=== PATIENT | male | born 1955 | race Caucasian/White ===

== ENCOUNTER 2018-05-25 12:59 | Emergency (ER) | payer MEDICARE, OTHER ==
[~2018-05-25] VITALS: Ht 177.8 cm; Wt 74.5 kg
[2018-05-25 13:14] VITALS: Ht 177.8 cm; Wt 74.5 kg
[2018-05-25] MEDS ORDERED: DIFLUCAN150 MG PO (13:16)
[2018-05-25] MEDS ORDERED: NEXIUM20 MG PO (13:17)
[2018-05-25] MEDS ORDERED: PEPTO-BISMOL262 M1 PO (13:18)
[2018-05-25 15:13] LABS: APPEARANCE CLEAR (CLEAR); BILIRUBIN NEGATIVE (NEGATIVE); COLOR STRAW (YELLOW); GLUCOSE NEGATIVE (NEGATIVE); KETONE SMALL mg/dL (NEGATIVE); NITRITE NEGATIVE (NEGATIVE); PROTEIN NEGATIVE (NEGATIVE); SPECIFIC GRAVITY 1.005 (1.005-1.020); UROBILINOGEN NORMAL (NORMAL)
[2018-05-25 15:14] LABS: BACTERIA FEW /hpf (NONE SEEN); RED CELLS - URINE 0-5 /hpf (0-5); WHITE CELLS - URINE 0-5 /hpf (0-5)
[2018-05-25 15:14] LABS: BASOPHILS 0.1 % (0-2); EOSINOPHILS 0.3 % (0-7); HEMATOCRIT 40.3 % (42.0-54.0); HEMOGLOBIN 13.6 g/dL (13.5-17.5); IMMATURE GRANULOCYTES 0.5 % (0-5); LYMPHOCYTES 10.3 % (15-50); MCH 28.6 pg (26.0-34.0); MCHC 33.7 g/dL (31.0-37.0); MCV 84.8 fL (80.0-100.0); MEAN PLATELET VOLUME 9.1 fL (7.4-10.4); MONOCYTES 9.7 % (2-11); NEUTROPHILS 79.1 % (40-80); PLATELET COUNT 313 10x3/uL (130-400); RBC 4.75 10x6/uL (4.20-6.10)
[2018-05-25 15:38] LABS: ALBUMIN 2.4 g/dL (3.4-5.0); ALKALINE PHOSPHATASE 179 U/L (46-116); ALT (SGPT) 45 U/L (10-68); BILIRUBIN - TOTAL 0.46 mg/dL (0.2-1.3); CALC OSMOLALITY 266 mosm/kg (275-300); CALCIUM 9.2 mg/dL (8.5-10.1); CHLORIDE - SERUM 94 mmol/L (98-107); CREATININE - SERUM 0.9 mg/dL (0.6-1.3); GLUCOSE 111 mg/dL (74-106); POTASSIUM - SERUM 4.1 mmol/L (3.5-5.1); PROTEIN - SERUM 8.2 g/dL (6.4-8.2); SODIUM 131 mmol/L (136-145); UREA NITROGEN 21 mg/dL (7-18); eGFR NON AFRICAN AMERICAN 90 mL/min (90-120)
[2018-05-25 15:55] LABS: CREATINE KINASE 136 UL (21-232); TROPONIN-I < 0.017 ng/mL (0.000-0.060)
[2018-05-25] MEDS ORDERED: DIFLUCAN100 MG PO (19:44)
[2018-05-25 20:10] VITALS: BP 148/84
== END 2018-05-25 20:11 | disposition home or self-care (01) ==
LOC: D.ER 12:59
PROVIDERS: Emergency Medicine
DX: R53.1 Weakness (principal); E87.1 Hypo-osmolality and hyponatremia; Z87.19 Personal history of other diseases of the digestive system; R61 Generalized hyperhidrosis; R50.9 Fever, unspecified

== ENCOUNTER → 2018-07-01 12:08 | Outpatient (CLI) | payer MEDICARE, OTHER ==
[2018-05-25 13:14] VITALS: BMI 23.5
[~2018-07-01 12:08] MED LIST: ACETAMINOPHEN500 M1 PO; DIFLUCAN100 MG PO; DIFLUCAN150 MG PO; FISH OIL 1,0001 CA1 PO; MEDROL4 MG; NEXIUM20 MG PO; PEPTO-BISMOL262 M1 PO
[2018-07-14 10:18] VITALS: BMI 22.7
== END | disposition home or self-care (01) ==
LOC: D.CT 12:08
DX: R59.1 Generalized enlarged lymph nodes (principal)

== ENCOUNTER 2018-07-14 08:40 | Outpatient (CLI) | payer MEDICARE, OTHER ==
[~2018-07-14] VITALS: Ht 177.8 cm; Wt 71.8 kg
[~2018-07-14 08:40] MED LIST changes: -ACETAMINOPHEN500 M1 PO; -FISH OIL 1,0001 CA1 PO; -MEDROL4 MG
[2018-07-14 08:59] LABS: BASOPHILS 0.2 % (0-2); EOSINOPHILS 0.4 % (0-7); HEMATOCRIT 42.7 % (42.0-54.0); HEMOGLOBIN 13.8 g/dL (13.5-17.5); IMMATURE GRANULOCYTES 1.1 % (0-5); LYMPHOCYTES 12.8 % (15-50); MCH 27.8 pg (26.0-34.0); MCHC 32.3 g/dL (31.0-37.0); MCV 85.9 fL (80.0-100.0); MEAN PLATELET VOLUME 8.6 fL (7.4-10.4); MONOCYTES 7.9 % (2-11); NEUTROPHILS 77.6 % (40-80); PLATELET COUNT 282 10x3/uL (130-400); RBC 4.97 10x6/uL (4.20-6.10); WBC 13.1 10x3/uL (4.8-10.8)
[2018-07-14 09:08] LABS: CALC OSMOLALITY 277 mosm/kg (275-300); CALCIUM 9.9 mg/dL (8.5-10.1); CARBON DIOXIDE 30.3 mmol/L (21.0-32.0); CHLORIDE - SERUM 99 mmol/L (98-107); CREATININE - SERUM 0.9 mg/dL (0.6-1.3); GLUCOSE 121 mg/dL (74-106); POTASSIUM - SERUM 4.1 mmol/L (3.5-5.1); SODIUM 138 mmol/L (136-145); UREA NITROGEN 16 mg/dL (7-18); eGFR NON AFRICAN AMERICAN 90 mL/min (90-120)
[2018-07-14 09:09] LABS: APTT 31.3 SECONDS (22.8-39.4); INR 1.24 (0.85-1.17)
[2018-07-14] MEDS ORDERED: MEDROL4 MG (09:58)
[2018-07-14] MEDS ORDERED: ACETAMINOPHEN500 M1 PO (09:59)
[2018-07-14] MEDS ORDERED: FISH OIL 1,0001 CA1 PO (10:01)
[2018-07-14 10:18] VITALS: BP 124/83; Ht 177.8 cm; Wt 71.8 kg
--- NOTE | 2018-07-14 12:02 | NUR ---
1140 SEE POST PROCEDURE CHECKLIST FOR VITAL SIGN TRENDS.
--- NOTE | 2018-07-14 12:04 | NUR ---
1155 DRESSING CDI, REG FINGER FOOD DIET SERVED, TIME FRAME FOR TODAYS' STAY GIVEN.
--- NOTE | 2018-07-14 13:09 | NUR ---
PT ABLE TO TOLERATE ICE WATER. DENIES PAIN/NEEDS AT THIS TIME. VS STABLE. WILL CONTINUE TO MONITOR.
--- NOTE | 2018-07-14 14:17 | NUR ---
PT IS STABLE AT THIS TIME. DENIES PAIN/NEEDS AT THIS TIME. VS STABLE. WILL CONTINUE TO MONITOR.
--- NOTE | 2018-07-14 14:59 | NUR ---
DC INSTRUCTIONS GIVEN TO PT/FAMILY. STATE UNDERSTANDING. PT VOIDED. DC'D IV CATH FULLY INTACT.
--- NOTE | 2018-07-14 15:04 | NUR ---
PT WAS INSTRUCTED TO WAIT FOR WC TO LEAVE THE UNIT. HOWEVER, ONCE OUR VOLUNTEER CAME TO THE PT'S ROOM TO BRING HIM TO THE CAR VIA WC, THE PT WAS GONE.
== END 2018-07-14 15:00 | disposition home or self-care (01) ==
LOC: D.SP 08:40 → D.CT 11:00 → D.SP 15:00 → D.CT 07-17 10:00
PROVIDERS: Radiology Vascular & Interventional Radiology
DX: R16.0 Hepatomegaly, not elsewhere classified (principal)

== ENCOUNTER → 2019-02-17 09:48 | Outpatient (CLI) | payer MEDICARE, OTHER ==
[2018-07-14 10:18] VITALS: BMI 22.7
[~2019-02-17 09:48] MED LIST changes: +ACETAMINOPHEN500 M1 PO; +FISH OIL 1,0001 CA1 PO; +MEDROL4 MG
--- NOTE | 2019-02-18 14:31 | EC ---
PATIENT:SANDI OLGUIN DATE OF SERVICE: 02/17/19 SEX: M MEDICAL RECORD: [id number] DATE OF : 53 [facility] AGE [facility] PATIENT: 63 ADMISSION DATE: 02/17/19 REFERRING PHYSICIAN: INTERPRETING PHYSICIAN: HUGO MORAN MD ECHOCARDIOGRAM REPORT ECHO CHARGES 4 ECHO COMPLETE Date: 02/17/19 CLINICAL DIAGNOSIS: CANCER/CHEMOTHERAPY ECHOCARDIOGRAPHIC MEASUREMENTS (adult normal given) AC root (d.<3.7cm) 3.0 cm LV Septum d (<1.2 cm> 1.1 cm Valve Excursion 2.3 cm LV Septum (systole) 1.6 cm Left Atria (s.<4.0cm> 3.9 cm LVPW d(<1.2cm) 1.2 cm RV (d.<2.3cm) 2.3 cm LVPW (sytole) 1.9 cm LV diastole(<5.6CM) 5.3 cm MV E-F(>70mm/sec) cm LV systole 3.2 cm LVOT Diameter 2.0 cm MV exc.(>10mm) cm Est.ejection fraction (50-75%) % DOPPLER: LVIT cm/sec A 36.0 cm/sec E 55.0 cm/sec LA cm/sec RVSP 29.2 mmHg LVOT 117 cm/sec AOP1/2T m/s Asc. Ao 109 cm/sec RVOT 57.0 cm/sec RA cm/sec PA 83.0 cm/sec AV Gradient Peak 4.8 mmHg AV Mean 2.7 mmHg AV Area 3.0 cm MV Gradient Peak 1.8 mmHg MV Mean 0.71 mmHg MV Area cm COMMENTS: Etymology Professor: José Manuel LAKEOE Lab Nurse: 1 Dr. Moran TAPE# PACS Pericardial Effusion N DATE OF SERVICE: 02/17/2019 FINDINGS: 1. Left ventricular chamber size is within normal limits. Left ventricular systolic function is normal at 50%. 2. Left atrium, right atrium, and right ventricular chamber sizes are within normal limits. 3. Valvular structures have normal structure and motion. 4. Doppler interrogation reveals mild mitral regurgitation, mild tricuspid regurgitation, no other valvular insufficiency or stenosis. Pulmonary systolic ECHOCARDIOGRAM REPORT [id number] SANDI OLGUIN pressure is normal estimated at 29 mmHg. 5. No evidence of pericardial effusion or left ventricular thrombus. TRANSINT:[id number] Voice Confirmation ID: [id number] DOCUMENT ID: [id number] HUGO MORAN MD at 1431 CC: [id number] DICTATION DATE: 02/17/191710 CHANGE MANAGER: 02/17/19 2340 DEP CLI 02/17/19 [facility] [address] [id number]
== END | disposition home or self-care (01) ==
LOC: D.ECHO 09:48
PROVIDERS: ATTEND Internal Medicine Hematology & Oncology
DX: C22.1 Intrahepatic bile duct carcinoma (principal); C78.7 Secondary malignant neoplasm of liver and intrahepatic bile duct; C77.8 Secondary and unspecified malignant neoplasm of lymph nodes of multiple regions; Z51.11 Encounter for antineoplastic chemotherapy